=== PATIENT | male | born 1975 | race Caucasian/White ===

== ENCOUNTER → 2019-06-23 12:15 | Outpatient (BNVA) | payer OTHER, SELFPAY | PROVIDERS: Family Provider Nurse Practitioner Family; PCP Nurse Practitioner Family; Visit Provider Nurse Practitioner Family | DX: R53.83 Other fatigue (principal); Z13.6 Encounter for screening for cardiovascular disorders; N52.9 Male erectile dysfunction, unspecified | CPT/HCPCS: 80053; 80061; 82306; 82607; 84403; 84443; 85025 ==

== ENCOUNTER 2019-07-14 11:02 | Emergency (ER) | payer OTHER, SELFPAY ==
[2019-07-14 11:07] VITALS: BP 146/119; PULSE 75; RESP 16; TEMP 36.6; O2SAT 93; BMI 27.8
--- NOTE | 2019-07-14 11:26 | W.ED.EXTPRO ---
HPI - Extremity Problem General: Chief complaint: Extremity Injury, Upper Stated complaint: l hand injury/WC Time Seen by Provider: 07/14/19 11:08 Source: patient Mode of arrival: ambulatory Limitations: no limitations History of Present Illness: HPI Narrative: 44-year-old male who has a laceration to his left palm from a circular saw. He did wash it out at the facility. States it happened roughly 30 minutes ago. His last tetanus was 8 years ago. He has minimal pain at this time. He has full range of motion of the hand. Location: left Radiation: none Relieving factors: nothing Exacerbating factors: nothing Associated symptoms: Deny chest pain, fever(s) or rash Review of Systems Const: Denies: fever(s), chills, body aches or change in appetite Eyes: Denies: blurry vision or eye discomfort ENMT: Denies: throat pain or dental pain Card: Denies: chest pain Resp: Denies: dyspnea GI: Denies: abdominal pain, nausea, vomiting or diarrhea : Denies: dysuria Musc: Denies: neck pain or back pain Skin/Breast: Denies: rash Neuro: Denies: headache(s) Psych: Denies: depression Memo/Lymph: Denies: easy bruising All/Imm: Denies: urticaria PFSH ED PFSH: Family History Grandfather Cancer Father CAD (coronary artery disease) Mother AA (alcohol abuse) Social History Smoking and tobacco status: current every day smoker Alcohol intake: never Physical Exam Const: COMMON NORMALS: no acute distress, patient oriented x3 and healthy appearing HENMT: COMMON NORMALS: normocephalic and atraumatic HEAD & SCALP: normocephalic and atraumatic Eye: COMMON NORMALS: Equal, round and reactive pupils present and EOMs intact bilaterally PUPIL: Yes Equal, round and reactive pupils present Neck/C-Spine: COMMON NORMALS: full ROM and supple Chest: COMMONS NORMALS: normal inspection of the chest and normal palpation of entire chest wall Resp: COMMON NORMALS: normal respiratory effort, No retractions, No use of accessory muscles and clear to auscultation bilaterally AUSCULTATION: clear to auscultation bilaterally Cardio: COMMON NORMALS: regular rate, regular rhythm and No murmurs present (Cardio) RATE: regular rate RHYTHM: regular rhythm GI: COMMON NORMALS: Normal to inspection, nondistended, normoactive bowel sounds present, Soft to palpation, non-tender and no masses PALPATION: Yes Soft to palpation Extremity: COMMON NORMALS: normal to inspection and full ROM Neuro: COMMON NORMALS: patient oriented x3, moves all extremities and no focal motor deficits Psych: COMMON NORMALS: mental status grossly normal, Normal thought process present and cooperative THOUGHT PROCESS: Normal thought process present Skin: COMMON NORMALS: no rashes or lesions noted NARRATIVE SKIN EXAM: 4 cm laceration to palm of left hand not involving any deep structures or tendons. Bleeding is controlled GENERAL SKIN EXAM: no rashes or lesions noted Procedures Laceration Laceration 1: Site: hand Side (If applicable): left Size (cm): 4 Description: linear Depth: simple, single layer Local Anesthetic: lidocaine 1% Amount of anesthesia used (mL): 10 Pre-repair: wound explored and irrigated extensively Skin layer closed with: nylon Size (cm): 4-0 Number of sutures: 7 Technique: simple, interrupted Course Vital Signs: Vital signs: Vital Signs Temperature 97.9 F 07/14/19 11:07 Pulse Rate 75 07/14/19 11:07 Respiratory Rate 16 07/14/19 11:07 Blood Pressure 146/119 07/14/19 11:07 Pulse Oximetry 93 07/14/19 11:07 MDM - Extremity (Nontraumatic) MDM Narrative: Medical decision making narrative: Patient presents here with a hand laceration. Repaired laceration with sutures. Wound is very well appearing and has no signs of foreign bodies. Patient given tetanus here and is to return in 1 week for suture removal. Discharge Plan Discharge Patient Disposition: Home, Self-Care Clinical Impression: Laceration of hand Qualifiers: Encounter type: initial encounter Foreign body presence: without foreign body Laterality: left Qualified Code(s): S61.412A - Laceration without foreign body of left hand, initial encounter Condition: Stable Prescriptions: No Action sildenafil [Viagra] 100 mg tablet 100 mg PO DAILY PRN (Reason: sexual activity) Qty: 10 RF: 5 cholecalciferol (vitamin D3) 1,250 mcg (50,000 unit) capsule 50,000 unit PO .WEEKLY Qty: 4 RF: 2 Discharge Orders: Discharge Order (Routine); Ordered 07/14/19 Ordered By: Bird Washburn Referrals: Eugenia Fernandez APN [Family Provider] - Cynthia Slaughter FNP [Primary Care Provider] - Discharge Diet: Advance as tolerated Discharge Activity: Resume usual activity Patient Instructions: Laceration (ED) Activity Restrictions/Additional Instructions: sutures need removed in 7 days Coding Level of Care Code ED Braiding Operator for Ling Prince
[2019-07-14] MEDS: tetanus-dipt-pertussis 0.5 mL SDV IM (11:34)
[2019-07-14 11:36] VITALS: BP 140/105; PULSE 86; RESP 16; O2SAT 96
== END 2019-07-14 11:37 | disposition home or self-care (01) ==
LOC: ER 11:30
PROVIDERS: Emergency Provider Emergency Medicine; Family Provider Nurse Practitioner Family; PCP Nurse Practitioner Family
DX: S61.412A Laceration without foreign body of left hand, initial encounter (principal); W27.0XXA Contact with workbench tool, initial encounter; F17.210 Nicotine dependence, cigarettes, uncomplicated; Z23 Encounter for immunization
CPT/HCPCS: 12002; 12345; 90471; 90715; 99281; 99282

== ENCOUNTER → 2020-03-03 10:48 | Outpatient (BNVA) | payer OTHER, SELFPAY | PROVIDERS: Family Provider Nurse Practitioner Family; PCP Nurse Practitioner Family; Visit Provider Nurse Practitioner Family | DX: L03.116 Cellulitis of left lower limb (principal); M25.572 Pain in left ankle and joints of left foot; G89.29 Other chronic pain | CPT/HCPCS: 80053; 84550; 85025; 85379; 85651; 86140 ==

== ENCOUNTER → 2020-03-07 10:29 | Outpatient (BNVA) | payer OTHER, SELFPAY | PROVIDERS: Family Provider Nurse Practitioner Family; PCP Nurse Practitioner Family; Visit Provider Nurse Practitioner Family | DX: M79.605 Pain in left leg (principal) | CPT/HCPCS: 73590 ==

== ENCOUNTER 2020-03-08 11:26 | Outpatient (CLI) | payer OTHER, SELFPAY ==
--- NOTE | 2020-03-08 11:45 | US_ITS ---
WS: [id number] ULTRASOUND SOFT TISSUES LEFT lower extremity. HISTORY: M79.605 - Pain in left leg COMPARISON: Radiograph 03/07/2020. TECHNIQUE: 2-D and color Doppler imaging is submitted. There is an area of soft tissue thickening and over the anterior tibia with no increased vascularity. Soft tissue thickening measures 1.7 x 1.7 cm. There is mild mixed echogenicity. There may be a small amount of fluid present. This is a very nonspecific finding. US/US soft tissue/extremity 80005 IMPRESSION: Minimal soft tissue thickening with mild inflammation measuring 1.7 x 1.7 cm ov er the anterior tibia. Nonspecific by ultrasound. As there is a palpable abnorm ality consider follow-up MRI LEFT lower extremity with and without contrast. Ev aluation for neoplasm or infection needs to be considered as there was no histo ry of trauma.
== END 2020-03-08 11:27 | disposition home or self-care (01) ==
LOC: RAD 11:27
PROVIDERS: PCP Nurse Practitioner Family; Visit Provider Nurse Practitioner Family
DX: M79.605 Pain in left leg (principal)
CPT/HCPCS: 76882

== ENCOUNTER → 2022-01-30 12:46 | Outpatient (BNVA) | payer SELFPAY | PROVIDERS: PCP Nurse Practitioner Family; Visit Provider Dermatology | DX: Z01.89 Encounter for other specified special examinations (principal) ==